=== PATIENT | female | born 1980 | race Caucasian/White ===

== ENCOUNTER 2018-11-22 00:30 | Emergency (ER) | payer OTHER ==
[~2018-11-22] VITALS: Ht 157.5 cm; Wt 59.9 kg
[2018-11-22] MEDS ORDERED: CEFUROXIME500 MG PO (05:34)
== END 2018-11-22 18:22 | disposition home or self-care (01) ==
LOC: ER 00:30
DX: N39.0 Urinary tract infection, site not specified (principal)

== ENCOUNTER 2018-12-01 22:39 | Emergency (ER) | payer OTHER ==
[~2018-12-01] VITALS: Ht 157.5 cm; Wt 61.7 kg
[~2018-12-01 22:39] MED LIST: CEFUROXIME500 MG PO
== END 2018-12-02 11:06 | disposition home or self-care (01) ==
LOC: ER 22:39
DX: O23.41 Unspecified infection of urinary tract in pregnancy, first trimester (principal); Z34.01 Encounter for supervision of normal first pregnancy, first trimester

== ENCOUNTER → 2019-01-15 | Emergency (ER) | payer OTHER ==
[~2019-01-15] VITALS: Ht 157.5 cm; Wt 63.5 kg
== END | disposition left against medical advice (07) ==
LOC: ER 19:23
DX: Z53.20 Procedure and treatment not carried out because of patient's decision for unspecified reasons (principal)

== ENCOUNTER 2019-06-17 11:45 | Inpatient (IN) | payer OTHER ==
[~2019-06-17] VITALS: Ht 160 cm; Wt 76.2 kg
[2019-06-17] MEDS ORDERED: ZYRTEC10 M3 PO (14:02)
== END 2019-06-25 16:16 | DRG 785 ==
LOC: OB/GYN 11:45 → O/R 06-22 09:01 → OB/GYN 06-22 11:00
PROVIDERS: ADMIT Obstetrics & Gynecology
PROC: 0UB70ZZ Excision of Bilateral Fallopian Tubes, Open Approach (ICD-10-PCS; 2019-06-22)
PROC: 4A1HXCZ Monitoring of Products of Conception, Cardiac Rate, External Approach (ICD-10-PCS; 2019-06-22)
PROC: 10D00Z1 Extraction of Products of Conception, Low, Open Approach (ICD-10-PCS; principal; 2019-06-22 11:00)
DX: O82 Encounter for cesarean delivery without indication (principal); O34.211 Maternal care for low transverse scar from previous cesarean delivery; Z30.2 Encounter for sterilization; Z3A.39 39 weeks gestation of pregnancy; Z37.0 Single live birth; Z22.330 Carrier of Group B streptococcus